=== PATIENT | male | born 1955 | race African-American/Black ===

== ENCOUNTER 2020-06-28 19:06 | Emergency (ER) | payer OTHER ==
[~2020-06-28] VITALS: Ht 182.9 cm; Wt 115.0 kg
[2020-06-28 19:15] VITALS: BP 195/93
--- NOTE | 2020-06-28 19:40 | PHYS DOC ---
Adult General Chief Complaint Chief Complaint: FINGER INJURY HPI HPI Patient is a 64-year-old male who presents to the emergency room with small cuts to his right hand. Patient hit multiple windows today. Patient is agitated and appears intoxicated. He is in police custody. He is refusing care. He is refusing to give any history. Review of Systems Review of Systems Unable to obtain due to uncooperativeness Physical Exam Physical Exam General: Awake, alert, moderate distress, uncooperative HEENT: Atraumatic, EOMI, PERRL, airway patent, moist oral mucosa Neck: Supple, trachea midline Respiratory: CTA bilaterally, normal effort, no wheezing/crackles CV: RRR, no murmur, cap refill <2 GI: Soft, nondistended, nontender, no masses MSK: No obvious deformities Skin: Warm, dry, small lacerations to right fingers Neuro: sensory and motor grossly intact, no focal deficits Psych: Agitated, belligerent, not suicidal or homicidal EKG EKG [] Radiology/Procedures Radiology/Procedures [] Heart Score Risk Factors: Risk Factors: DM, Current or recent (<one month) smoker, HTN, HLP, family history of CAD, obesity. Risk Scores: Risk Factors: DM, Current or recent (<one month) smoker, HTN, HLP, family history of CAD, obesity. Course & Med Decision Making Course & Med Decision Making Pertinent Labs and Imaging studies reviewed. (See chart for details) Patient is 64-year-old male who presents to the emergency room with cuts to his right hand. Police are trying to medically clear him. Is unclear at this time what time this happened. He is refusing care. Lacerations are not gaping and do not require closure. It is also unclear at this time how old they are in closure may be inappropriate. We will attempt to cover the wounds. He does not have any other injuries. He will be discharged to police custody. Dragon Disclaimer Dragon Disclaimer This electronic medical record was generated, in whole or in part, using a voice recognition dictation system. Departure Departure: Impression: Primary Impression: Finger laceration Disposition: 01 DC HOME SELF CARE/HOMELESS Condition: STABLE Patient Instructions: Laceration Care, Adult KYE GÓMEZ MD Jun 28, 2020 19:40
== END 2020-06-28 19:47 | disposition home or self-care (01) ==
LOC: ER 19:06
DX: S61.210A Laceration without foreign body of right index finger without damage to nail, initial encounter (principal); R45.1 Restlessness and agitation; X78.0XXA Intentional self-harm by sharp glass, initial encounter; Y93.89 Activity, other specified; Y92.89 Other specified places as the place of occurrence of the external cause; Y99.8 Other external cause status
CPT/HCPCS: 99282